=== PATIENT | male | born 1965 | race Caucasian/White ===

== ENCOUNTER 2018-08-22 16:05 | Observation (INO) | payer OTHER ==
[2018-08-22 17:48] VITALS: BMI 44.3
[2018-08-22] MEDS: NACHLORIDE 0.45% 1,000 ML IV SCH (18:20)
[2018-08-22 18:40] LABS: Absolute Lymphocytes (CBC) 2.2 K/uL (0.7-4.9); Absolute Monocytes 0.7 K/uL (0.1-1.3); Basophils % 0.6 % (0-1.3); Eosinophils % 1.5 % (0-4.4); Hematocrit 47.6 % (39.6-49.0); Lymphocytes % 30.7 % (15.3-44.8); MCH 30.2 pg (27.0-35.0); MCV 89.8 fL (80-100); MPV 9.4 fL (7.6-11.3); Monocytes % 10.6 % (3.3-12.3)
[2018-08-22] MEDS ORDERED: ONDANSETRON 4 MG (ODT) TAB PO PRN (19:00)
[2018-08-22] MEDS ORDERED: DIPHENHYDRAMINE 25 MG TAB/CAP PO PRN (19:00)
[2018-08-22] MEDS ORDERED: POLYETHYL GLY 3350 17 GM/DOSE PO PRN (19:00)
[2018-08-22] MEDS ORDERED: LOPERAMIDE HCL 2 MG CAPSULE PO PRN (19:00)
[2018-08-22] MEDS ORDERED: ACETAMINOPHEN 325 MG TABLET PO PRN (19:00)
[2018-08-22] MEDS ORDERED: ONDANSETRON 4 MG/2 ML VIAL IV PRN (19:00)
[2018-08-22 19:10] LABS: Protime INR 1.08
[2018-08-22 19:21] LABS: ALT/SGPT 39 U/L (12-78); AST/SGOT 22 U/L (15-37); Albumin 3.9 g/dL (3.4-5.0); Alkaline Phosphatase 75 U/L (45-117); BUN Blood Urea Nitrogen 7 mg/dL (7-18); Bicarbonate 27 mmol/L (21-32); Bilirubin Direct 0.2 mg/dL (0-0.2); Bilirubin Total 0.7 mg/dL (0.2-1.0); Glucose Level 89 mg/dL (74-106); Magnesium 2.3 mg/dL (1.8-2.4); Phosphorus 4.1 mg/dL (2.5-4.9); Potassium 4.1 mmol/L (3.5-5.1); Protein, Total 6.9 g/dL (6.4-8.2); Sodium Level 141 mmol/L (136-145)
[2018-08-22 19:36] LABS: Urine Appearance CLEAR; Urine Bilirubin NEGATIVE (NEG); Urine Blood NEGATIVE (NEG); Urine Color YELLOW; Urine Glucose NEGATIVE (NEG); Urine Protein NEGATIVE (NEG); Urine Urobilinogen 0.2 mg/dL (0.2-1.0); Urine pH 6.5 (5.0-7.0)
[2018-08-22 19:54] LABS: Urine Microscopic Reflex NO UMIC
--- NOTE | 2018-08-22 20:01 | RAD REPORT ---
EXAM DESCRIPTION: RAD - Chest Pa And Lat (2 Views) - 08/22/2018 7:31 pm CLINICAL HISTORY: Abdominal pain COMPARISON: August 03 TECHNIQUE: PA and lateral views of the chest were obtained. FINDINGS: The lungs are clear of an acute infiltrate, mass or failure finding. Interstitial markings are prominent. Trachea is midline. Interstitial pattern is similar to comparison. Heart size is nor mal and central vasculature is within normal limits. No pleural effusion or pneumothorax seen. No a cute bony finding noted. No aortic abnormality. IMPRESSION: Prominent interstitial markings similar to comparison. No acute findings seen.
--- NOTE | 2018-08-22 20:03 | RAD REPORT ---
EXAM DESCRIPTION: MRI - Brain Wo Cont - 08/22/2018 7:17 pm CLINICAL HISTORY: Headache, nausea and vomiting COMPARISON: None. TECHNIQUE: Sagittal T1-weighted images were obtained along with axial PD, heavily T2-weighted and T2 -FLAIR images. Axial DWI and ADC mapping sequences were also obtained along with coronal heavily T2-w eighted images. FINDINGS: No intracranial hemorrhage, mass or acute infarction. There is no edema or shift of midlin e structures. No extra-axial fluid collections. Martin-matter/white matter junction is preserved. Signa l voids are seen as a normal finding in the major intracranial vessels. No significant atrophy or chronic ischemic change. No globe or orbital content abnormality. Sella and suprasellar region show no acute findings. Mastoid air cells and paranasal sinuses are clear. IMPRESSION: Negative non-contrast MRI of the Brain for acute or significant finding.
--- NOTE | 2018-08-22 20:05 | RAD REPORT ---
EXAM DESCRIPTION: US - Abdomen Exam Complete - 08/22/2018 7:00 pm CLINICAL HISTORY: Abdominal pain COMPARISON: Ultrasound 2012 FINDINGS: Gallbladder size is normal. No gallstones, wall thickening or pericholecystic fluid. Commo n bile duct is normal with no common duct stone identified. Liver size is normal. There is a coarsene d, increased liver echogenicity with a decrease in penetrance. This is a pattern typical for fatty in filtration. Pattern is similar to 2012. The pancreas is grossly normal but partially obscured. No hydronephrosis or suspicious mass in either kidney. A thin-walled anechoic 7.1 centimeter upper po le right renal cyst is present. This is enlarged from approximately 5.7 cm back in 2012. Aorta and IVC show no suspicious findings. No ascites or bulky lymphadenopathy. IMPRESSION: No gallbladder or biliary tree abnormality identifiable. Diffuse fatty infiltration of the liver similar to 2012. Right renal cyst has enlarged from 2012. Cyst continues to show benign characteristics. Pancreas is grossly normal but partially obscured by bowel.
[2018-08-22] MEDS ORDERED: INFLUENZA VACCINE (for 3y+) 0.5 ML DOSE IMVAC ONE (21:00)
[2018-08-22] MEDS ORDERED: PNEUMOCOCCAL VACCINE 0.5 ML IMVAC ONE (21:00)
[2018-08-22] MEDS: ENOXAPARIN 40 MG/0.4 ML SQ SCH (21:51)
[2018-08-22] MEDS: CEFTRIAXONE/SWI 1gm 1 GM/10 ML SYR IVP SCH (21:51)
[2018-08-22] MEDS: FAMOTIDINE 20 MG/2 ML VIAL IV SCH (21:52)
[2018-08-23 05:08] LABS: Absolute Lymphocytes (CBC) 2.3 K/uL (0.7-4.9); Absolute Monocytes 0.8 K/uL (0.1-1.3); Absolute Neutrophil 2.6 K/uL (1.8-8.0); Basophils % 0.8 % (0-1.3); Eosinophils % 2.1 % (0-4.4); Hematocrit 45.3 % (39.6-49.0); MCH 30.4 pg (27.0-35.0); MCV 89.6 fL (80-100); MPV 9.8 fL (7.6-11.3); RBC Red Blood Cell Count 5.05 M/uL (4.33-5.43)
[2018-08-23 06:43] LABS: Magnesium 2.1 mg/dL (1.8-2.4); Potassium 4.4 mmol/L (3.5-5.1)
[2018-08-23] MEDS: ENOXAPARIN 40 MG/0.4 ML SQ SCH (10:18)
[2018-08-23] MEDS: FAMOTIDINE 20 MG/2 ML VIAL IV SCH ×2 (10:19→20:46)
[2018-08-23] MEDS: CEFTRIAXONE/SWI 1gm 1 GM/10 ML SYR IVP SCH (10:19)
--- NOTE | 2018-08-23 12:47 | RAD REPORT ---
EXAM DESCRIPTION: CT - Chest Abdomen Pelvis W Cont - 08/23/2018 12:36 pm CLINICAL HISTORY: Chest and abdominal pain. Cough and diarrhea COMPARISON: 2013 CT chest TECHNIQUE: Computed axial tomography of the chest, abdomen and pelvis was obtained. 100 cc Isovue-30 0 was administered intravenously. Oral contrast was not requested. This limits evaluation of bowel. All CT scans are performed using dose optimization technique as appropriate and may include automated exposure control or mA/KV adjustment according to patient size. FINDINGS: A pleural effusion is not present. A pericardial effusion is not noted. The lungs are essentially clear. No mediastinal or hilar lymphadenopathy seen Fatty infiltration liver. Spleen, pancreas, adrenals and left kidney appear unremarkable. 6.7 centimeter right renal cyst. Thickening of the gallbladder wall is not present. A gastric band is in place. Wall of the distal esophagus appears thickened. There is no evidence of diverticulitis. Small inguinal hernias contain fat IMPRESSION: Fatty liver 6.7 centimeter right renal cyst Apparent thickening of the wall of the distal esophagus may be secondary to inflammation or incomplet e distention . Otherwise unremarkable CT chest .
[2018-08-23] MEDS: NACHLORIDE 0.45% 1,000 ML IV SCH (17:14)
[2018-08-24 05:55] LABS: Absolute Lymphocytes (CBC) 1.6 K/uL (0.7-4.9); Absolute Monocytes 0.7 K/uL (0.1-1.3); Absolute Neutrophil 2.3 K/uL (1.8-8.0); Basophils % 0.6 % (0-1.3); Eosinophils % 2.4 % (0-4.4); Hematocrit 44.6 % (39.6-49.0); Lymphocytes % 33.8 % (15.3-44.8); MCH 31.2 pg (27.0-35.0); MCV 89.2 fL (80-100); MPV 9.8 fL (7.6-11.3); Monocytes % 15.2 % (3.3-12.3)
[2018-08-24 06:10] LABS: Magnesium 2.5 mg/dL (1.8-2.4); Potassium 4.5 mmol/L (3.5-5.1)
--- NOTE | 2018-08-24 07:10 | EKG ---
Test Date: 2018-08-23 Test Time: 07:35:43 Manager Crisis: PRIYA MEASUREMENT RESULTS: Intervals: Rate: 76 CT: 154 QRSD: 86 QT: 406 QTc: 456 [place]: P: 54 CT: 154 QRS: 54 T: 49 INTERPRETIVE STATEMENTS: Normal sinus rhythm Normal ECG Compared to ECG 04/02/2014 13:45:23 Myocardial infarct finding no longer present Electronically Signed On 08-24-18 07:07:27 ASSOCIATE ACCOUNT DIRECTOR by Ky Garcia
--- NOTE | 2018-08-24 07:26 | P.PN ---
Subjective Date of Service: 08/23/18 Chief Complaint: FEVER FOR 3 WEEKS, LOW GRADE Subjective: No new changes MR SAUCEDO HAS NOT FELT WELL FOR 3 WEEKS. FEVER, HEADACHES ON THE TOP, RUQ ABDOMEN PAIN. OUTPT THREPAY OR DIAGNOSTICS HAVE NOT YIELDED ANY RESULTS. Review of Systems 10-point ROS is otherwise unremarkable General: Weakness Physical Examination - Vital Signs Temperature: 98.1 F Blood Pressure: 103/56 Pulse: 68 Respirations: 18 Pulse Ox (%): 94 - Physical Exam General: Mild distress, Obese HEENT: Atraumatic, PERRLA, EOMI Neck: Supple, JVD not distended Respiratory: Clear to auscultation bilaterally, Normal air movement Cardiovascular: Regular rate/rhythm, Normal S1 S2 Gastrointestinal: Tenderness (RUQ) Musculoskeletal: No tenderness Integumentary: No rashes Neurological: Normal speech, Normal tone, Normal affect Lymphatics: No axilla or inguinal lymphadenopathy - Studies Laboratory Data (last 24 hrs) 08/24/18 05:30: Sodium 140, Potassium 4.5, BUN 9, Creatinine 1.00, Glucose 101, Magnesium 2.5 H 08/24/18 05:30: WBC 4.8 D, Hgb 15.6, Hct 44.6, Plt Count 193 Medications List Reviewed: Yes Assessment And Plan - Current Problems (Diagnosis) (1) FUO (fever of unknown origin) Onset Date: 08/23/18 Current Visit: Yes Status: Acute Plan: NO OBVIOUS SOURCE YET. WBC NORMAL, UA NORMAL SONOGRAM NEGATIVE MRI BRAIN NEG. CT CHEST ABD PELVIS. SHOW NO MAJOR ISSUES. HIDA SCAN IN AM. (2) Right upper quadrant abdominal pain Onset Date: 08/23/18 Current Visit: Yes Status: Acute Plan: ABOVE
--- NOTE | 2018-08-24 08:56 | RAD REPORT ---
EXAM DESCRIPTION: NM - Hepatobiliary System Imagin - 08/24/2018 8:32 am CLINICAL HISTORY: Abdominal pain and fever of unknown origin COMPARISON: None. TECHNIQUE: The patient was administered approximately 5.9 mCi Tc99m Choletec and images abdomen obta ined for 30 minutes. Patient was then given 12 ounces ice cream images gallbladder obtained for 30 mi nutes FINDINGS: Liver demonstrates prompt radiotracer uptake. Activity is seen within gallbladder by 10 mi nutes. After administration of radiotracer the gallbladder ejection fraction equals 43%. Patient was asympto matic prior to the ice cream. Patient complained of pain 1 /10 during the administration of ice cream . Radiotracer uptake is seen within small bowel IMPRESSION: No evidence acute cholecystitis Normal gallbladder ejection fraction 43%
[2018-08-24] MEDS: CEFTRIAXONE/SWI 1gm 1 GM/10 ML SYR IVP SCH (09:32)
[2018-08-24] MEDS: ENOXAPARIN 40 MG/0.4 ML SQ SCH (09:33)
[2018-08-24] MEDS: FAMOTIDINE 20 MG/2 ML VIAL IV SCH (09:33)
[2018-08-24 10:32] VITALS: O2SAT 97
[2018-08-24 15:21] VITALS: BP 117/69; TEMP 98.3
[2018-08-26 11:46] LABS: Vitamin D 1,25-Dihydroxy Total 40 pg/mL (18-72); Vitamin D,1,25-OH2, D2 <8 pg/mL
== END 2018-08-24 15:18 | disposition home or self-care (01) ==
LOC: 2ND 16:31 → INTOOBSV 16:31
PROVIDERS: ADMIT Internal Medicine; ATTEND Internal Medicine
DX: R50.9 Fever, unspecified (principal); R10.11 Right upper quadrant pain
CPT/HCPCS: 36415; 70551; 71046; 71260; 74177; 76700; 78226; 80048; 80076; 81003; 82607; 82652; 83735; 84100; 84443; 85025; 85610; 85730; 87040; 87205; 90670; 93005; 94760; A9537; G0378; J0696; J1650; Q2035; Q9967